=== PATIENT | female | born 1950 | race Caucasian/White ===

== ENCOUNTER → 2018-10-26 | Outpatient (CLI) | payer MEDICARE ==
[~2018-10-26] MED LIST: ACIDOPHILUS PROB1 MG; Abreva2 GM TOP; Acyclovir400 MG PO; CITA20 PO; CYCL10 PO; MELA3 PO; NAPR500 PO; Norco 5-325 Ta1 EACH PO; Omeprazole20 M1 PO; SERT50 PO
== END ==
LOC: PLD 14:17 → LAB SHORT 14:17
DX: C44.519 Basal cell carcinoma of skin of other part of trunk (principal)
CPT/HCPCS: 88305

== ENCOUNTER 2019-08-17 09:54 | Day surgery (SDC) | payer MEDICARE ==
[~2019-08-17] VITALS: Ht 154.9 cm; Wt 88.4 kg
[~2019-08-17 09:54] MED LIST changes: +MELATONIN5 M2 PO
== END 2019-08-17 13:00 | disposition home or self-care (01) ==
LOC: ORSCSDS 09:54
PROVIDERS: Internal Medicine Gastroenterology
PROC: 0DBL8ZX Excision of Transverse Colon, Via Natural or Artificial Opening Endoscopic, Diagnostic (ICD-10-PCS; principal; 2019-08-17 11:15)
PROC: 0DBM8ZX Excision of Descending Colon, Via Natural or Artificial Opening Endoscopic, Diagnostic (ICD-10-PCS; principal; 2019-08-17 11:15)
DX: Z12.11 Encounter for screening for malignant neoplasm of colon (principal); Z86.010 Personal history of colon polyps; D12.3 Benign neoplasm of transverse colon; D12.4 Benign neoplasm of descending colon; I10 Essential (primary) hypertension; D17.9 Benign lipomatous neoplasm, unspecified; K64.4 Residual hemorrhoidal skin tags; F41.8 Other specified anxiety disorders; Z87.891 Personal history of nicotine dependence; Z79.899 Other long term (current) drug therapy
CPT/HCPCS: 88305; J2405; J2704; J7120

== ENCOUNTER 2022-03-11 11:12 | Day surgery (SDC) | payer MEDICARE ==
[~2022-03-11] VITALS: Ht 152.4 cm; Wt 82.5 kg
[~2022-03-11 11:12] MED LIST changes: +ASCO500 PO; +BACTRIM DS TAB1 EAC1 PO; +HYDR1TAB94 PO; +OXYC5 PO; +PROBIOTIC PO; +PROM25 PO; +REFRESH TEARS BOTHEYES; +SERTRALINE HCL50 MG PO; +[UNRECOGNIZED DRUG - CODE] SL
--- NOTE | 2022-03-11 14:06 | NUR ---
03/11/22 Carmen Valadez PRIOR TO ARRIVING IN THE OR, PATIENT RECEIVED VANCO 1GM IN THE PREOP SETTING.
--- NOTE | 2022-03-11 18:23 | NUR ---
SHIFT SUMMARY PT POD #0 FOR R TOTAL KNEE. PT HAD A SPINAL DURING SURGERY AND IS CURRENTLY ABLE TO MOVE HER LEGS BUT DOES NOT QUITE HAVE SENSATION IN THEM YET. PT RESTING COMFORTABLY IN BED AND HAS HAD NO PAIN OR NAUSEA. VSS.
[2022-03-12 05:15] LABS: BASOPHILS ABSOLUTE AUTO 0.01 K/mm3 (0.00-0.23); BASOPHILS PERCENT AUTO 0 % (0-2); EOSINOPHILS PERCENT AUTO 0 % (0-6); Hematocrit 32.7 % (33.0-51.0); IMMATURE GRAN ABSOLUTE AUTO 0.06 K/mm3 (0.00-0.10); IMMATURE GRAN PERCENT AUTO 1 % (0-1); LYMPHOCYTES ABSOLUTE AUTO 0.94 K/mm3 (0.84-5.20); LYMPHOCYTES PERCENT AUTO 9 % (21-46); MONOCYTES ABSOLUTE AUTO 0.61 K/mm3 (0.16-1.47); MONOCYTES PERCENT AUTO 6 % (4-13); Mean Corpuscular HGB 28.1 pg (26.0-34.0); Mean Corpuscular HGB Conc 33.6 g/dL (31.5-36.5); Mean Corpuscular Volume 84 fL (80-100); Mean Platelet Volume 9.1 fL (9.1-12.4); NEUTROPHILS ABSOLUTE AUTO 8.54 K/mm3 (1.96-9.15); NEUTROPHILS PERCENT AUTO 84 % (41-73); Platelet Count 229 K/mm3 (150-400); RDW Coefficient Variation 13.9 % (11.7-14.2); RDW Standard Deviation 42.4 fL (35.1-46.3); Red Blood Cell Count 3.91 M/mm3 (3.80-5.20); White Blood Cell Count 10.16 K/mm3 (4.00-11.30)
--- NOTE | 2022-03-12 05:22 | NUR ---
TRAIN MASTER SUMMARY PT IS POD 0 FOR R TKA. PT HAS BEEN AMBULATING WELL WITH FWW IN THE HALLS AND TO THE BATHROOM. PT DID REQUEST OXYCODONE AT BEDTIME BUT OTHERWISE PAIN HAS BEEN WELL MANAGED WITH SCHEDULED TORADOL AND TYLENOL. VSS, WILL CONTINUE TO MONITOR.
[2022-03-12 05:36] LABS: Bun/Creatinine Ratio 28.8 (12.0-20.0); Creatinine, Blood 0.56 mg/dL (0.40-1.00); Magnesium, Blood 2.4 mg/dL (1.6-2.4); Potassium, Blood 4.1 mmol/L (3.5-5.5)
[2022-03-12] MEDS ORDERED: ASPI81CH PO (11:14)
[2022-03-12] MEDS ORDERED: SULTRIDS PO (11:15)
[2022-03-12] MEDS ORDERED: ROXICODONE5 MG PO (11:15)
[2022-03-12] MEDS ORDERED: PROM25 PO (11:15)
--- NOTE | 2022-03-12 11:46 | NUR ---
DISCHARGE SUMMARY PT POD #1 FOR R TOTAL KNEE. PT WORKED WITH PHYSICAL THERAPY AND DID WELL. DRESSING CHANGED BY SURGEON AND CHANGED TO [employer]. GAYLAEL CDI. PT MEDICATED FOR PAIN X1 THIS SHIFT AND REPORTS THAT SHE HAS ALREADY PICKED UP NEEDED PRESCRIPTIONS. DC'D HOME.
== END 2022-03-12 12:00 | disposition home or self-care (01) ==
LOC: ORSCMMR 11:12 → ORD 14:00 → ORSCMMR 14:00 → SURS 16:17 → ORSCMMR 03-12 12:00
PROVIDERS: Orthopaedic Surgery
PROC: 8E0YXBZ Computer Assisted Procedure of Lower Extremity (ICD-10-PCS; principal; 2022-03-11 13:00)
PROC: 0SRC0J9 Replacement of Right Knee Joint with Synthetic Substitute, Cemented, Open Approach (ICD-10-PCS; principal; 2022-03-11 13:00)
DX: M17.11 Unilateral primary osteoarthritis, right knee (principal); I10 Essential (primary) hypertension; Z87.891 Personal history of nicotine dependence; K21.9 Gastro-esophageal reflux disease without esophagitis; F32.A Depression, unspecified; E66.9 Obesity, unspecified; Z68.35 Body mass index [BMI] 35.0-35.9, adult; Z79.899 Other long term (current) drug therapy
CPT/HCPCS: 36415; 73560-RT; 80048; 83735; 85025; 97110; 97161; A9270; C1713; C1776; J0171; J0690; J0735; J1100; J1885; J2250; J2370; J2405; J2704; J2795; J3010; J3370; J7050; J7060; J7120

== ENCOUNTER → 2022-09-25 | Outpatient (CLI) | payer MEDICARE ==
[~2022-09-25] MED LIST changes: +ASPI81CH PO; +ROXICODONE5 MG PO; +SULTRIDS PO
== END ==
LOC: LAB 15:21 → LAB SHORT 15:21
DX: R30.0 Dysuria (principal)
CPT/HCPCS: 87077; 87086; 87186

== ENCOUNTER 2023-02-25 12:22 | Day surgery (SDC) | payer MEDICARE ==
[~2023-02-25] VITALS: Ht 152.4 cm; Wt 70.9 kg
[2023-02-25] MEDS ORDERED: Prozac20 MG (12:50)
[2023-02-25] MEDS ORDERED: MELA3 (12:50)
[2023-02-25] MEDS ORDERED: VITAMIN D310 MC4 (12:50)
[2023-02-25 15:31] VITALS: BP 137/93
== END 2023-02-25 15:15 | disposition home or self-care (01) ==
LOC: ORSCSDS 12:22
PROVIDERS: Internal Medicine Gastroenterology
PROC: 0DJD8ZZ Inspection of Lower Intestinal Tract, Via Natural or Artificial Opening Endoscopic (ICD-10-PCS; principal; 2023-02-25 13:45)
DX: Z12.11 Encounter for screening for malignant neoplasm of colon (principal); Z86.010 Personal history of colon polyps; K64.4 Residual hemorrhoidal skin tags; Z79.899 Other long term (current) drug therapy
CPT/HCPCS: J2405; J2704; J7120

== ENCOUNTER 2025-01-29 06:11 | Day surgery (SDC) | payer OTHER ==
[~2025-01-29] VITALS: Ht 152.4 cm; Wt 75.2 kg
[~2025-01-29 06:11] MED LIST changes: +MELA3; +Prozac20 MG; +VITAMIN D310 MC4
[2025-01-29] MEDS ORDERED: Tranexamic Acid 100 ML IV ONE ×2 (06:30→10:40)
[2025-01-29] MEDS ORDERED: CefTRIAXone Sodium 2,000 MG in NS 100 ML IV SCH (06:35)
[2025-01-29] MEDS ORDERED: Vancomycin HCL 1,000 MG in NS 250 ML IV SCH (06:35)
[2025-01-29] MEDS ORDERED: Rocuronium Bromide 10 MG/ML 5ML Injection IV ONE (06:40)
[2025-01-29] MEDS ORDERED: Dexamethasone Sod Phos 10 MG/ML 1ML VIAL ONE (06:40)
[2025-01-29] MEDS ORDERED: Ondansetron HCl 2 MG / ML 2ML Vial ONE ×2 (06:40→11:35)
[2025-01-29] MEDS ORDERED: Bupivacaine HCl 0.25% 50 ML Vial ONE (06:41)
[2025-01-29] MEDS ORDERED: Midazolam HCl 1MG / ML 2ML Vial ONE (06:41)
[2025-01-29] MEDS ORDERED: FentaNYL Citrate 50 MCG/ML 2 ML Injection ONE (06:41)
[2025-01-29] MEDS ORDERED: propofoL 20 ML IV ONE (06:44)
[2025-01-29] MEDS ORDERED: Dexmedetomidine HCL 200 MCG / 2 ML ONE (06:47)
[2025-01-29] MEDS ORDERED: PROBIOTIC1 EA14 PO (06:51)
[2025-01-29] MEDS ORDERED: NS 1,000 ML IV ONE ×2 (07:02→07:43)
[2025-01-29] MEDS ORDERED: Bupivacaine 0.5% W/EPI 1:200000 SDV 30 ML Vial ONE (07:04)
[2025-01-29] MEDS ORDERED: OxyCODONE HCL 10 MG TABCR ONE (07:07)
--- NOTE | 2025-01-29 07:26 | NUR ---
01/29/25 0726 Gilbert Dang TIME OUT AT 0715. DR FRANKEL PERFORMED NERVE BLOCK. PT TOLERATED WELL.
[2025-01-29] MEDS ORDERED: Scopolamine Hydrobromide Patch ONE (07:28)
[2025-01-29] MEDS ORDERED: Phenylephrine HCl 100 MCG/ML-NS 10MLSYR (1MG/10ML) ONE (07:35)
[2025-01-29] MEDS ORDERED: ePHEDrine Sulfate 50 MG/ML 1ML Injection ONE (08:00)
[2025-01-29] MEDS ORDERED: Glycopyrrolate 0.2 MG/ML 5ML VIAL ONE (08:30)
[2025-01-29] MEDS ORDERED: Lactated Ringer's 1,000 ML IV ONE (09:10)
[2025-01-29] MEDS ORDERED: Sugammadex Sodium 200 MG/2ML SDV (100 MG/ML) ONE (09:50)
--- NOTE | 2025-01-29 10:28 | NUR ---
01/29/25 1028 FRANCO KINNEY'S DONE IN PACU, BY UZAIR CENTENO
[2025-01-29 10:37] VITALS: BP 129/67
--- NOTE | 2025-01-29 11:00 | NUR ---
01/29/25 1100 FRANCO KINNEY TXA WAS STARTED AT 1055. (2ND DOSE). PT DOING WELL. DRINKING PEPSI.
== END 2025-01-29 12:35 | disposition home or self-care (01) ==
LOC: ORSCSDS 06:11
PROVIDERS: Orthopaedic Surgery
PROC: 0RRJ00Z Replacement of Right Shoulder Joint with Reverse Ball and Socket Synthetic Substitute, Open Approach (ICD-10-PCS; principal; 2025-01-29 07:30)
DX: M19.011 Primary osteoarthritis, right shoulder (principal); I10 Essential (primary) hypertension; K21.9 Gastro-esophageal reflux disease without esophagitis; Z87.891 Personal history of nicotine dependence; F32.A Depression, unspecified; F41.9 Anxiety disorder, unspecified; Z79.899 Other long term (current) drug therapy
CPT/HCPCS: 73030; A9270; C1713; C1776; J0696; J1100; J2250; J2371; J2405; J2704; J3010; J3370; J7030; J7050; J7120